=== PATIENT | male | born 1975 | race Caucasian/White ===

== ENCOUNTER 2024-04-18 15:26 | Inpatient (IN) | payer OTHER ==
[2024-04-18] MEDS ORDERED: ONDANSETRON *ODT* 4 MG TABLET SL PRN (17:52)
[2024-04-18] MEDS ORDERED: NALOXONE (NYS OPIOID OVERDOSE PROGRAM) 4 MG/0.1 ML SPRAY NS PRN (17:52)
[2024-04-18] MEDS ORDERED: IBUPROFEN 400 MG TABLET (FP) PO PRN (17:52)
[2024-04-18] MEDS ORDERED: ACETAMINOPHEN 325 MG TABLET (FP) PO PRN (17:52)
[2024-04-18] MEDS ORDERED: MAG HYDROX/AL HYDROX/SIMETH 30 ML UNIT-DOSE CUP PO PRN (17:52)
[2024-04-18] MEDS ORDERED: BISMUTH SUBSALICYLATE 524 MG/30 ML PO PRN (17:52)
[2024-04-18] MEDS ORDERED: BENZOCAINE/MENTHOL (CHLORASEPTIC ) LOZENGE MM PRN (17:52)
[2024-04-18] MEDS ORDERED: IBUPROFEN 600 MG TABLET (FP) PO PRN (17:52)
[2024-04-18] MEDS ORDERED: MAGNESIUM HYDROX 2400MG/30ML ORAL SUSPENSION 30 ML CUP PO PRN (17:52)
[2024-04-18] MEDS ORDERED: BENZONATATE 200 MG CAPSULE PO PRN (17:52)
[2024-04-18] MEDS ORDERED: DICYCLOMINE HCL 10 MG CAPSULE PO PRN (17:52)
[2024-04-18] MEDS ORDERED: POLYETHYLENE GLYCOL (HEALTHYLAX) 3350 17 GM PACKET PO PRN (17:52)
[2024-04-18] MEDS ORDERED: guaiFENesin 600 MG TABLET.ER (FP) PO PRN (17:52)
[2024-04-18] MEDS ORDERED: LOPERAMIDE HCL 2 MG CAPSULE PO PRN (17:52)
[2024-04-18] MEDS: METHOCARBAMOL 500 MG TABLET PO PRN (19:27)
[2024-04-18] MEDS: hydrOXYzine PAMOATE 25 MG CAPSULE (FP) PO PRN (19:27)
[2024-04-18] MEDS: MELATONIN 5 MG TABLETS PO SCH (22:12)
[2024-04-18] MEDS: THIAMINE 100 MG TABLET PO SCH (22:12)
[2024-04-19] MEDS: PRENATAL VITAMINS W/ FOLIC ACID TABLET (FP) PO SCH (09:09)
[2024-04-19] MEDS ORDERED: chlordiazePOXIDE HCL 25 MG CAPSULE PO PRN (09:12)
[2024-04-19] MEDS: chlordiazePOXIDE HCL 25 MG CAPSULE PO SCH (10:31)
[2024-04-19] MEDS: PANTOPRAZOLE 40 MG TABLET PO SCH (10:32)
[2024-04-19] MEDS: TAMSULOSIN HCL 0.4 MG CAP PO SCH (10:32)
[2024-04-19] MEDS: ROSUVASTATIN CA 10 MG TABLET PO SCH (10:32)
[2024-04-19] MEDS: HYDROCHLOROTHIAZIDE 25 MG TABLET (FP) PO SCH (10:32)
[2024-04-19 12:25] LABS: HEMATOCRIT 40.3 % (35.4-49); MCH 29.8 pg (25.7-33.7); MCHC 34.8 g/dl (32.0-35.9); MEAN CELL VOLUME 85.7 fl (80-96); MEAN PLT VOLUME 7.5 fl (7.5-11.1); PLATELET COUNT 186 10^3/uL (134-434); RBC 4.71 M/mm3 (4.00-5.60); RDW 13.6 % (11.9-15.9); WHITE BLOOD COUNT 7.1 K/mm3 (4.0-10.0)
[2024-04-19 12:29] LABS: POTASSIUM 3.3 mmol/L (3.5-5.1)
[2024-04-19 12:33] LABS: CALCIUM 9.8 mg/dL (8.5-10.1)
[2024-04-19 12:35] LABS: ALBUMIN 3.9 g/dl (3.4-5.0)
[2024-04-19 12:37] LABS: CREATININE 0.7 mg/dL (0.55-1.3)
[2024-04-19 12:39] LABS: BILIRUBIN,TOTAL 1.8 mg/dL (0.2-1)
[2024-04-19 12:40] LABS: TOT PROT 7.4 g/dl (6.4-8.2)
[2024-04-19 12:41] LABS: BLOOD UREA NITROGEN 15.2 mg/dL (7-18)
[2024-04-19 13:24] LABS: HIV INTERPRETATION NEGATIVE (NEGATIVE)
[2024-04-21] MEDS: chlordiazePOXIDE HCL 25 MG CAPSULE PO SCH (05:49)
[2024-04-22] MEDS ORDERED: chlordiazePOXIDE HCL 10 MG CAPSULE PO PRN
[2024-04-22] MEDS: chlordiazePOXIDE HCL 10 MG CAPSULE PO SCH (05:51)
[2024-04-23] MEDS: chlordiazePOXIDE HCL 10 MG CAPSULE PO SCH (05:22)
[2024-04-23 09:22] VITALS: BP 113/83; PULSE 92; RESP 19; TEMP 97
[2024-04-23 16:14] LABS: POTASSIUM 2.9 mmol/L (3.5-5.1)
[2024-04-24] MEDS ORDERED: chlordiazePOXIDE HCL 10 MG CAPSULE PO ONE (05:00)
== END 2024-04-23 10:57 | disposition home or self-care (01) | DRG 775 ==
LOC: YASAS 15:26 → Y3N 18:19
PROVIDERS: ADMIT Allergy & Immunology; ATTEND Surgery
PROC: HZ2ZZZZ Detoxification Services for Substance Abuse Treatment (ICD-10-PCS; principal; 2024-04-18)
DX: F10.230 Alcohol dependence with withdrawal, uncomplicated (principal); E78.5 Hyperlipidemia, unspecified; I27.20 Pulmonary hypertension, unspecified; I10 Essential (primary) hypertension; K21.9 Gastro-esophageal reflux disease without esophagitis; N40.0 Benign prostatic hyperplasia without lower urinary tract symptoms; R94.31 Abnormal electrocardiogram [ECG] [EKG]
CPT/HCPCS: 36415; 80053; 80305; 84132; 85027; 86780; 87389; 93005; 93010

== ENCOUNTER 2024-05-08 08:37 | Inpatient (IN) | payer OTHER ==
[2024-05-08 09:21] VITALS: BMI 26.8
[2024-05-08] MEDS ORDERED: IBUPROFEN 400 MG TABLET (FP) PO PRN (09:35)
[2024-05-08] MEDS ORDERED: MAGNESIUM HYDROX 2400MG/30ML ORAL SUSPENSION 30 ML CUP PO PRN (09:35)
[2024-05-08] MEDS ORDERED: LOPERAMIDE HCL 2 MG CAPSULE PO PRN (09:35)
[2024-05-08] MEDS ORDERED: METHOCARBAMOL 500 MG TABLET PO PRN (09:35)
[2024-05-08] MEDS ORDERED: DICYCLOMINE HCL 10 MG CAPSULE PO PRN (09:35)
[2024-05-08] MEDS ORDERED: POLYETHYLENE GLYCOL (HEALTHYLAX) 3350 17 GM PACKET PO PRN (09:35)
[2024-05-08] MEDS ORDERED: ACETAMINOPHEN 325 MG TABLET (FP) PO PRN (09:35)
[2024-05-08] MEDS ORDERED: guaiFENesin 600 MG TABLET.ER (FP) PO PRN (09:35)
[2024-05-08] MEDS ORDERED: ONDANSETRON *ODT* 4 MG TABLET SL PRN (09:35)
[2024-05-08] MEDS ORDERED: IBUPROFEN 600 MG TABLET (FP) PO PRN (09:35)
[2024-05-08] MEDS ORDERED: MAG HYDROX/AL HYDROX/SIMETH 30 ML UNIT-DOSE CUP PO PRN (09:35)
[2024-05-08] MEDS ORDERED: BISMUTH SUBSALICYLATE 262 MG/15 ML BTL PO PRN (09:35)
[2024-05-08] MEDS ORDERED: BENZOCAINE/MENTHOL (CHLORASEPTIC ) LOZENGE MM PRN (09:35)
[2024-05-08] MEDS ORDERED: BENZONATATE 200 MG CAPSULE PO PRN (09:35)
[2024-05-08] MEDS ORDERED: chlordiazePOXIDE HCL 25 MG CAPSULE ONE (10:10)
[2024-05-08] MEDS ORDERED: PRENATAL VITAMINS W/ FOLIC ACID TABLET (FP) PO ONE (10:10)
[2024-05-08] MEDS: PRENATAL VITAMINS W/ FOLIC ACID TABLET (FP) PO SCH (10:14)
[2024-05-08] MEDS: chlordiazePOXIDE HCL 25 MG CAPSULE PO PRN (10:14)
[2024-05-08] MEDS: PANTOPRAZOLE 40 MG TABLET PO SCH (11:39)
[2024-05-08 11:50] VITALS: BP 124/86; PULSE 116; RESP 18; TEMP 96.9
[2024-05-08] MEDS ORDERED: THIAMINE 100 MG TABLET PO SCH (22:00)
[2024-05-08] MEDS ORDERED: MELATONIN 5 MG TABLETS PO SCH (22:00)
[2024-05-08] MEDS ORDERED: ROSUVASTATIN CA 10 MG TABLET PO SCH (22:00)
[2024-05-09] MEDS ORDERED: chlordiazePOXIDE HCL 25 MG CAPSULE PO SCH (05:00)
[2024-05-09] MEDS ORDERED: TAMSULOSIN HCL 0.4 MG CAP PO SCH (08:30)
[2024-05-10] MEDS ORDERED: chlordiazePOXIDE HCL 10 MG CAPSULE PO PRN
[2024-05-10] MEDS ORDERED: chlordiazePOXIDE HCL 25 MG CAPSULE PO SCH (05:00)
[2024-05-11] MEDS ORDERED: chlordiazePOXIDE HCL 10 MG CAPSULE PO SCH (05:00)
[2024-05-12] MEDS ORDERED: chlordiazePOXIDE HCL 10 MG CAPSULE PO SCH (05:00)
[2024-05-13] MEDS ORDERED: chlordiazePOXIDE HCL 10 MG CAPSULE PO ONE (05:00)
== END 2024-05-08 13:56 | disposition left against medical advice (07) | DRG 770 ==
LOC: YASAS 08:37 → Y6N 10:04
PROVIDERS: ADMIT Allergy & Immunology; ATTEND Surgery
PROC: HZ2ZZZZ Detoxification Services for Substance Abuse Treatment (ICD-10-PCS; principal; 2024-05-08)
DX: F10.230 Alcohol dependence with withdrawal, uncomplicated (principal); I10 Essential (primary) hypertension; R94.31 Abnormal electrocardiogram [ECG] [EKG]; Z87.891 Personal history of nicotine dependence
CPT/HCPCS: 80305; 80307

== ENCOUNTER 2024-05-13 16:17 | Inpatient (IN) | payer OTHER ==
[2024-05-13 16:52] VITALS: BMI 28.3
[2024-05-13] MEDS ORDERED: ACETAMINOPHEN 500 MG TABLET (FP) PO PRN (17:12)
[2024-05-13] MEDS ORDERED: MAGNESIUM HYDROX 2400MG/30ML ORAL SUSPENSION 30 ML CUP PO PRN (17:18)
[2024-05-13] MEDS ORDERED: BENZONATATE 200 MG CAPSULE PO PRN (17:18)
[2024-05-13] MEDS ORDERED: IBUPROFEN 400 MG TABLET (FP) PO PRN (17:18)
[2024-05-13] MEDS ORDERED: IBUPROFEN 600 MG TABLET (FP) PO PRN (17:18)
[2024-05-13] MEDS ORDERED: BISMUTH SUBSALICYLATE 524 MG/30 ML PO PRN (17:18)
[2024-05-13] MEDS ORDERED: ONDANSETRON *ODT* 4 MG TABLET SL PRN (17:18)
[2024-05-13] MEDS ORDERED: POLYETHYLENE GLYCOL (HEALTHYLAX) 3350 17 GM PACKET PO PRN (17:18)
[2024-05-13] MEDS ORDERED: MAG HYDROX/AL HYDROX/SIMETH 30 ML UNIT-DOSE CUP PO PRN (17:18)
[2024-05-13] MEDS ORDERED: DICYCLOMINE HCL 10 MG CAPSULE PO PRN (17:18)
[2024-05-13] MEDS ORDERED: guaiFENesin 600 MG TABLET.ER (FP) PO PRN (17:18)
[2024-05-13] MEDS ORDERED: BENZOCAINE/MENTHOL (CHLORASEPTIC ) LOZENGE MM PRN (17:18)
[2024-05-13] MEDS ORDERED: LOPERAMIDE HCL 2 MG CAPSULE PO PRN (17:18)
[2024-05-13] MEDS ORDERED: chlordiazePOXIDE HCL 25 MG CAPSULE PO PRN (17:21)
[2024-05-13] MEDS: chlordiazePOXIDE HCL 25 MG CAPSULE PO SCH (18:20)
[2024-05-13] MEDS: propRANOLol HCL 10 MG TABLET PO ONE ×2 (19:36→19:41)
[2024-05-13] MEDS: hydrOXYzine PAMOATE 25 MG CAPSULE (FP) PO PRN (20:51)
[2024-05-13] MEDS: METHOCARBAMOL 500 MG TABLET PO PRN (20:51)
[2024-05-13] MEDS: ROSUVASTATIN CA 10 MG TABLET PO SCH (22:19)
[2024-05-13] MEDS: THIAMINE 100 MG TABLET PO SCH (22:19)
[2024-05-13] MEDS: MELATONIN 5 MG TABLETS PO SCH (22:22)
[2024-05-14] MEDS: TAMSULOSIN HCL 0.4 MG CAP PO SCH (07:40)
[2024-05-14] MEDS: PRENATAL VITAMINS W/ FOLIC ACID TABLET (FP) PO SCH (10:11)
[2024-05-14] MEDS: PANTOPRAZOLE 40 MG TABLET PO SCH (10:11)
[2024-05-14] MEDS: HYDROCHLOROTHIAZIDE 25 MG TABLET (FP) PO SCH (10:11)
[2024-05-15] MEDS: chlordiazePOXIDE HCL 25 MG CAPSULE PO SCH (05:36)
[2024-05-15 12:40] LABS: POTASSIUM 3.2 mmol/L (3.5-5.1)
[2024-05-15 12:42] LABS: ALBUMIN 3.8 g/dl (3.4-5.0); CALCIUM 9.6 mg/dL (8.5-10.1)
[2024-05-15 12:43] LABS: BLOOD UREA NITROGEN 14.3 mg/dL (7-18)
[2024-05-15 12:46] LABS: CREATININE 0.9 mg/dL (0.55-1.3); HEMATOCRIT 43.6 % (35.4-49); HEMOGLOBIN 14.2 GM/dL (11.7-16.9); MCH 28.3 pg (25.7-33.7); MCHC 32.5 g/dl (32.0-35.9); MEAN CELL VOLUME 86.9 fl (80-96); MEAN PLT VOLUME 7.8 fl (7.5-11.1); PLATELET COUNT 167 10^3/uL (134-434); RBC 5.02 M/mm3 (4.00-5.60); RDW 14.5 % (11.9-15.9); WHITE BLOOD COUNT 5.2 K/mm3 (4.0-10.0)
[2024-05-15 12:47] LABS: BILIRUBIN,TOTAL 1.5 mg/dL (0.2-1); TOT PROT 7.6 g/dl (6.4-8.2)
[2024-05-15] MEDS: POTASSIUM CHLORIDE ORAL LIQUID 20 MEQ/15 ML PO ONE (21:47)
[2024-05-16] MEDS ORDERED: chlordiazePOXIDE HCL 10 MG CAPSULE PO PRN
[2024-05-16] MEDS: chlordiazePOXIDE HCL 10 MG CAPSULE PO SCH (05:43)
[2024-05-16] MEDS: POTASSIUM CHLORIDE ORAL LIQUID 20 MEQ/15 ML PO ONE (15:53)
[2024-05-16] MEDS: POTASSIUM CHLORIDE ORAL LIQUID 20 MEQ/15 ML PO SCH (21:57)
[2024-05-17] MEDS: chlordiazePOXIDE HCL 10 MG CAPSULE PO SCH (05:39)
[2024-05-17 21:12] VITALS: RESP 18
[2024-05-18] MEDS: chlordiazePOXIDE HCL 10 MG CAPSULE PO ONE (05:50)
[2024-05-18] MEDS: NALOXONE (NYS OPIOID OVERDOSE PROGRAM) 4 MG/0.1 ML SPRAY NS SCH (08:39)
[2024-05-18 08:42] VITALS: BP 144/103; PULSE 90; TEMP 97.7
== END 2024-05-18 10:10 | disposition home or self-care (01) | DRG 775 ==
LOC: YASAS 16:17 → Y6N 17:46
PROVIDERS: ADMIT Allergy & Immunology; ATTEND Surgery
PROC: HZ2ZZZZ Detoxification Services for Substance Abuse Treatment (ICD-10-PCS; principal; 2024-05-13)
DX: F10.230 Alcohol dependence with withdrawal, uncomplicated (principal); F10.282 Alcohol dependence with alcohol-induced sleep disorder; E87.6 Hypokalemia; E78.2 Mixed hyperlipidemia; I10 Essential (primary) hypertension; K21.9 Gastro-esophageal reflux disease without esophagitis; N40.0 Benign prostatic hyperplasia without lower urinary tract symptoms; R94.31 Abnormal electrocardiogram [ECG] [EKG]
CPT/HCPCS: 36415; 80053; 84132; 85027; 86780; 90846; 90853